=== PATIENT | male | born 1985 | race Caucasian/White ===

== ENCOUNTER 2021-11-28 17:11 | Emergency (ER) | payer OTHER, SELFPAY ==
[2021-11-28 17:18] VITALS: BP 157/89; PULSE 86; RESP 20; TEMP 36.4; O2SAT 98
--- NOTE | 2021-11-28 17:42 | ECG_ITS ---
Measurements Intervals [place] Rate: 78 P: 35 [place]: 186 QRS: 39 QRSD: 120 T: 28 QT: 384 QTc: 437 Interpretive Statements SINUS RHYTHM INTRAVENTRICULAR CONDUCTION DELAY BORDERLINE ECG Electronically Signed On 11-29-2021 8:53:32 CDT by Sal Rivas D.O.
--- NOTE | 2021-11-28 17:43 | ED.BACK ---
HPI - Back Pain/Injury General Chief Complaint: Back Pain/Injury Stated Complaint: Chest Pain/Back Pain Time Seen by Provider: 11/28/21 17:30 Source: patient and RN notes reviewed Mode of arrival: ambulatory Limitations: no limitations History of Present Illness HPI Narrative: Patient presents today complaining of a sharp and stabbing pain to his right mid back under the scapula radiating laterally to the right lateral chest that is worse when he is lying flat. Pain increases with deep breath and right arm movement. Pain started today in the late morning when he was at home. Patient thinks that it may be related to moving heavy boxes at work this morning, but he is unsure. He currently rates his pain 4/10, which increases to 7/10 when he lies on his back. Denies shortness of breath, nausea or vomiting, sweats or chills, left-sided chest pain, numbness or tingling in the extremities. MD elicited complaint: back pain Related Data Home Medications Medication Instructions Recorded Confirmed amlodipine 5 mg PO DAILY 11/28/21 11/28/21 atorvastatin 10 mg PO DAILY 11/28/21 11/28/21 buspirone 10 mg PO TID 11/28/21 11/28/21 metformin 1,500 mg PO DAILY 11/28/21 11/28/21 valsartan-hydrochlorothiazide 160 tablet PO DAILY 11/28/21 11/28/21 Allergies Allergy/AdvReac Type Severity Reaction Status Date / Time benzonatate Allergy choking Verified 11/28/21 17:24 Review of Systems Review of Systems: CONSTITUTIONAL: Denies body aches, fever, chills, or sweats. EYES: Denies visual changes, redness, or discharge. ENT: Denies rhinorrhea, congestion, sore throat, or otalgia. CARDIOVASCULAR: Denies chest pain, palpitations, or edema. RESPIRATORY: Denies cough or dyspnea. GASTROINTESTINAL: Denies abdominal pain, nausea, vomiting, or diarrhea. GENITOURINARY: Denies dysuria or hematuria. SKIN: Denies rash, itching, or wounds. MUSCULOSKELETAL: Denies joint pain, or myalgia.+ Right back pain radiating to the right chest NEUROLOGIC: Denies headache, numbness, tingling, or weakness. PSYCH: Denies depression or anxiety. [facility] Past Medical History Medical History (Updated 11/28/21 @ 18:16 by Haylee Ramirez, [facility], ) Diabetes Hypertension Surgical History Surgical History (Updated 11/28/21 @ 17:46 by Haylee Ramirez, [facility], ) History of appendectomy Comments At time of signature, I have reviewed and agree with nursing past medical, surgical, social and family history unless otherwise noted. Please see nursing chart for further information. There is no relevant family history pertinent to the presenting complaint Exam Narrative: GENERAL: Well-appearing, well-nourished, and in no acute distress. HEAD: Normocephalic, atraumatic. EYES: EOMI. No redness or drainage. Conjunctivae normal. ENT: Mucous membranes pink and moist. NECK: Normal AROM. CHEST: No respiratory distress. Clear to auscultation. HEART: Regular rate and rhythm. No murmur appreciated. Normal peripheral pulses. ABDOMEN: Soft, nontender, nondistended, normal active bowel sounds. MUSCULOSKELETAL: No bony tenderness to the spine. Patient localizes pain under the right scapula in a dermatomal fashion laterally to the right chest, but this area is nontender to palpation. No rashes noted to this area as well. No swelling, erythema, ecchymosis. No crepitus. Pain increases significantly when patient lies on his back and when he moves his right arm. EXTREMITIES: Normal range of motion. No edema. SKIN: Warm, dry, no rash. Capillary refill normal. Normal skin turgor. NEURO: No focal deficits. Alert and oriented x3. Gait steady. PSYCH: Normal affect. No signs of depression or anxiety. Course Course Level of Care: Express Care Visit Vital Signs Vital signs: Vital Signs Temperature 97.6 F 11/28/21 17:18 Pulse Rate 86 11/28/21 17:18 Respiratory Rate 20 11/28/21 17:18 Blood Pressure 157/89 H 11/28/21 17:18 Pulse Oximetry 98 11/28/21 17:18 Temper
== END 2021-11-28 18:21 | disposition home or self-care (01) ==
PROVIDERS: Emergency Provider Nurse Practitioner; PCP Internal Medicine
DX: S29.011A Strain of muscle and tendon of front wall of thorax, initial encounter (principal); E11.9 Type 2 diabetes mellitus without complications; I10 Essential (primary) hypertension; Z79.84 Long term (current) use of oral hypoglycemic drugs; X50.0XXA Overexertion from strenuous movement or load, initial encounter; Y99.0 Civilian activity done for income or pay
CPT/HCPCS: 93005; 99203; G0463

== ENCOUNTER 2022-04-01 08:45 | Emergency (ER) | payer OTHER, SELFPAY ==
[2022-04-01 08:50] VITALS: BP 146/78; PULSE 70; RESP 20; TEMP 36.3; O2SAT 97
--- NOTE | 2022-04-01 08:52 | ED.CHESTPAIN ---
HPI - Chest Pain General Chief Complaint: Chest Pain Stated Complaint: pain in chest Time Seen by Provider: 04/01/22 08:55 Source: patient, RN notes reviewed and old records reviewed Mode of arrival: ambulatory Limitations: no limitations History of Present Illness HPI narrative: 36 year old male who [facility] to [facility] care with complaints of mid sternal chest pain which started this morning. He reports that pain is sharp when he eats and drinks liquid with no shortness or breath, radiation of pain to arm,jaw or to his back. He states that at times his pain occurs when moving his arms outward with pain feeling like it is around his ribs also. Patient also states that he has been having vertigo which started on 03/27/2022 self diagnosed when he sits up or turns to the right and he has been sleeping with pillow wedged under his back to keep him off his right side. 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 He states that he has started some Nexium thinking maybe it is just GI related. Patient has stressful job and also is battling breast cancer so has much stress.Patient has called his doctor's office and can't be seen for 2 weeks due to his old doctor has retired and establishing with new provider in practice. MD complaint: chest pain (eats or drinks and with some arm movement also vertigo since 03/27/2022) Onset (ago): day(s) (today) Timing of current episode: episodic Pain scale (0-10): 2 Treatment prior to arrival: other (nexium) Risk Factors Coronary artery disease risk factors: diabetes, hyperlipidemia and hypertension Related Data Home Medications Medication Instructions Recorded Confirmed amlodipine 5 mg tablet 5 mg PO DAILY 11/28/21 04/01/22 atorvastatin 10 mg tablet 10 mg PO DAILY 11/28/21 04/01/22 metformin 500 mg tablet,extended 1,500 mg PO DAILY 11/28/21 04/01/22 release 24 hr valsartan 160 1 tablet PO DAILY 11/28/21 04/01/22 mg-hydrochlorothiazide 12.5 mg tablet esomeprazole magnesium 40 mg 40 mg PO DAILY 04/01/22 04/01/22 capsule,delayed release (Nexium) temazepam 15 mg capsule 15 mg PO QHS PRN Sleep 04/01/22 04/01/22 Allergies Allergy/AdvReac Type Severity Reaction Status Date / Time benzonatate Allergy Intermediate choking Verified 04/01/22 09:13 Review of Systems Review of Systems: CONSTITUTIONAL: Denies fever, chills, or sweats. EYES: Denies visual changes, redness, or discharge. ENT: Denies rhinorrhea, congestion, sore throat, or otalgia. CARDIOVASCULAR: Mid chest pain,no palpitations, or edema. RESPIRATORY: Denies cough or dyspnea. GASTROINTESTINAL: Denies abdominal pain, nausea, vomiting, or diarrhea. GENITOURINARY: Denies dysuria or hematuria. SKIN: Denies rash or itching. MUSCULOSKELETAL: Denies back pain, joint pain, or myalgia. NEUROLOGIC: Denies headache, numbness, or weakness, vertigo episodes PSYCHIATRIC: Denies anxiety or depression.a lot of stress in life All systems reviewed & are unremarkable except as noted in HPI and below PMFSH Past Medical History Medical History (Updated 04/05/22 @ 07:47 by Kirstie Reno NP) Diabetes Elevated cholesterol Hypertension Surgical History Surgical History (Updated 04/05/22 @ 07:48 by Kirstie Reno NP) H/O arthroscopy of left knee History of appendectomy Social History Social History (Updated 04/05/22 @ 07:48 by Kirstie Reno NP) Smoking status: Never smoker Alcohol intake: current Alcohol use details: rare Substance use: never Substance use type: does not use Living arrangements: with family Additional occupation/education comments: pharmacist Gender identity (if verbalized by the patient): Male Comments At time of signature, agree with nursing past medical, surgical, social and family history. There is no relevant family history pertinent to the presenting complaint Exam Narrative: GENERAL: Well-appearing, well-nourished, obese,and in no acute d
--- NOTE | 2022-04-01 09:01 | ECG_ITS ---
Measurements Intervals [place] Rate: 68 P: 53 [place]: 196 QRS: 62 QRSD: 123 T: 32 QT: 397 QTc: 422 Interpretive Statements SINUS RHYTHM INTRAVENTRICULAR CONDUCTION DELAY BASELINE ARTIFACT- I, II, III BORDERLINE ECG COMPARED TO ECG 11/28/2021 17:58:29 NO SIGNIFICANT CHANGES Electronically Signed On 04-01-2022 18:35:52 CDT by Sal Rivas D.O.
[2022-04-01 09:17] LABS: Glucose Point of Care 107 mg/dl (65-105)
== END 2022-04-01 09:42 | disposition home or self-care (01) ==
PROVIDERS: Emergency Provider Registered Nurse
DX: R07.89 Other chest pain (principal); K21.9 Gastro-esophageal reflux disease without esophagitis; E11.9 Type 2 diabetes mellitus without complications; E78.00 Pure hypercholesterolemia, unspecified; I10 Essential (primary) hypertension; R42 Dizziness and giddiness
CPT/HCPCS: 82948; 93005; 99213; G0463

== ENCOUNTER 2024-06-05 08:21 | Emergency (ER) | payer BC, SELFPAY ==
--- NOTE | ~2024-06-05 | XR_ITS ---
EXAMINATION: XR foot RT min 3V DATE: 06/05/2024 08:55 INDICATION: Right foot pain. TECHNIQUE: 4 views of right foot were obtained. COMPARISON: None. FINDINGS: Alignment is normal. No fracture. There is mild midfoot osteoarthritis. IMPRESSION: 1. Mild midfoot osteoarthritis. Reviewed, dictated and finalized at location A. [employer] ART DIRECTOR
[2024-06-05 08:30] VITALS: BP 135/81; PULSE 86; RESP 20; TEMP 36.6; O2SAT 97
--- NOTE | 2024-06-05 08:33 | ED_ITS ---
HPI - Extremity Injury (Lower) General Chief Complaint: Extremity Injury, Lower Stated Complaint: Rt foot Pain Source: patient Mode of arrival: ambulatory Limitations: no limitations History of Present Illness HPI Narrative: 39 y/o male with hx DM and HTN presented for c/o right foot pain x2 days. denies known injury or overuse. Pain is constant, worse with any pressure especially when walking. Took ibuprofen and Tylenol without much improvement. Related Data Home Medications Medication Instructions Recorded Confirmed amlodipine 5 mg tablet 5 mg PO DAILY 11/28/21 06/05/24 atorvastatin 10 mg tablet 10 mg PO DAILY 11/28/21 06/05/24 metformin 500 mg tablet,extended 1,500 mg PO DAILY 11/28/21 06/05/24 release 24 hr valsartan 160 1 tablet PO DAILY 11/28/21 06/05/24 mg-hydrochlorothiazide 12.5 mg tablet esomeprazole magnesium 40 mg 40 mg PO DAILY 04/01/22 06/05/24 capsule,delayed release (Nexium) temazepam 15 mg capsule 15 mg PO QHS PRN Sleep 04/01/22 06/05/24 esomeprazole magnesium 20 mg See Rx Instructions .Route .COMPLEX 06/05/24 06/05/24 capsule,delayed release semaglutide 0.25 mg or 0.5 mg (2 mg subcut 06/05/24 mg/3 mL) subcutaneous pen injector (Ozempic) valsartan 160 tablet 06/05/24 mg-hydrochlorothiazide 12.5 mg tablet Allergies Allergy/AdvReac Type Severity Reaction Status Date / Time benzonatate Allergy Intermediate choking Verified 06/05/24 08:23 Review of Systems Review of Systems: CONSTITUTIONAL: Denies body aches, fever, chills CARDIOVASCULAR: Denies chest pain, palpitations, or edema. RESPIRATORY: Denies cough or dyspnea. SKIN: Denies rash, or wounds. MUSCULOSKELETAL: reports right foot pain NEUROLOGIC: Denies numbness, tingling, or weakness. All systems reviewed & are unremarkable except as noted in HPI and below PMFSH Past Medical History Medical History Diabetes Elevated cholesterol Hypertension Surgical History Surgical History H/O arthroscopy of left knee History of appendectomy Social History Social History Smoking status: Never smoker Alcohol intake: current Alcohol use details: rare Substance use: never Substance use type: does not use Living arrangements: with family Additional occupation/education comments: pharmacist Gender identity (if verbalized by the patient): Male Comments At time of signature, I have reviewed and agree with nursing past medical, surgical, social and family history unless otherwise noted. Please see nursing chart for further information. There is no relevant family history pertinent to the presenting complaint Exam Narrative: GENERAL: Well-appearing CHEST: Speaks in full sentences. No respiratory distress. HEART: Regular rate and rhythm. Normal and equal peripheral pulses. EXTREMITIES: Right foot plantar surface of MTP 2-4 tender with palpation. Right foot has normal strength and sensation, normal range of motion, endorses pain with walking. No edema or ecchymosis, No open wounds; alignment normal, pulse palpable and equal bilaterally, skin warm, dry, pink. Capillary refill less than 3 seconds. SKIN: Warm, dry, no rash. NEURO: Alert and oriented x3. PSYCH: Normal mood and affect Course Course Emergency Course: Patient is aware of diagnosis, understands and agrees to treatment plan. Anticipatory guidance given. Patient agrees to follow-up as directed and is aware of reasons to seek care at the emergency department. Portions of this record may have been created with voice recognition software Level of Care: Express Care Visit Vital Signs Vital signs: Reviewed MDM - Extremity Injury (Lower) MDM Narrative Medical decision making narrative: Discussed physical exam findings And x-ray. offer a postop shoe, patient decline. Advised supportive measures and signs/symptoms to go to the ER. 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 Differential Diagnosis Differential diagnosis: Likely puncture wound of foot, fracture of toe and other (foot contusion, abrasion, cellulitis, ulcer) Imaging Data Radiologist's impression: Patient: Remberto Ramey : 1985 MR#: [id number] Age: 39 Acct:[id number] Loc: [facility] ADM Date: 06/05/24Attending Dr: Ordering Physician: Kaylee Ramirez APRN Date of Service: 06/05/24 Procedure(s): XR foot RT min 3V Accession Number(s): [id number] cc: Hayde, Evelyn HINOJOSA; Kaylee Ramirez APRN~ EXAMINATION: XR foot RT min 3V DATE: 06/05/2024 08:55 INDICATION: Right foot pain. TECHNIQUE: 4 views of right foot were obtained. COMPARISON: None. FINDINGS: Alignment is normal. No fracture. There is mild midfoot o steoarthritis. IMPRESSION: 1. Mild midfoot osteoarthritis. Discharge Plan Discharge Clinical Impression: Acute pain of right foot Patient Disposition: Home, Self-Care Condition: Stable Instructions: Antibiotic Form Additional Instructions: Rest and elevate the right leg; bear weight as tolerated. Limit running, jumping or excessive walking or standing. Apply ice 15-20 minute intervals several times a day Motrin alternate with Tylenol every 8 hours as needed Follow up with your primary care provider , call today to schedule appointment. Go to the ER for worsening symptoms or concerns Prescriptions: No Action temazepam 15 mg capsule 15 mg PO QHS PRN (Reason: Sleep) esomeprazole magnesium [Nexium] 40 mg Capsule,Delayed Release(Dr/Ec) 40 mg PO DAILY tizanidine 4 mg tablet 4 mg PO Q8H PRN (Reason: muscle spasticity) Qty: 20 0RF prednisone 50 mg tablet 50 mg PO DAILY Qty: 5 0RF valsartan-hydrochlorothiazide 160-12.5 mg tablet 1 tablet PO DAILY atorvastatin 10 mg tablet 10 mg PO DAILY amlodipine 5 mg tablet 5 mg PO DAILY metformin 500 mg tablet extended release 24 hr 1,500 mg PO DAILY valsartan-hydrochlorothiazide 160-12.5 mg tablet esomeprazole magnesium 20 mg capsule,delayed release(DR/EC) See Rx Instructions .ROUTE .COMPLEX Rx Instructions: as prescribed Ozempic 0.25 mg or 0.5 mg (2 mg/3 mL) pen injector SUBCUT Rx Instructions: as prescribed as prescribed Follow-up/Referrals: Hayde,MD Evelyn [Primary Care Provider] -
== END 2024-06-05 09:10 | disposition home or self-care (01) ==
PROVIDERS: Emergency Provider Nurse Practitioner Family; PCP Family Medicine
DX: M79.671 Pain in right foot (principal); E11.9 Type 2 diabetes mellitus without complications; Z79.84 Long term (current) use of oral hypoglycemic drugs; I10 Essential (primary) hypertension; E78.00 Pure hypercholesterolemia, unspecified
CPT/HCPCS: 73630; 99213; G0463